=== PATIENT | male | born 1955 | race Caucasian/White ===

== ENCOUNTER 2020-03-11 15:52 | Emergency (ER) | payer MEDICARE, BC ==
[~2020-03-11] VITALS: Ht 182.9 cm; Wt 136.0 kg
--- NOTE | 2020-03-11 16:12 | PHYS DOC ---
Past History Past Medical History: COPD, Hypertension Smoking: Quit Greater Than 1 Year General Adult EDM: Chief Complaint: palpitations HPI: HPI: 64-year-old male presents with palpitations. Patient had a similar episode of heart rate racing last night he said his pulse ox showed a rate up to 260. Patient also noted his sats were in the 80s at that time. Patient denies any chest pain, fever, cough but had some mild shortness of breath during the episode. Patient's never had episode like this today or in the past. Patient did take a nitroglycerin with some improved symptoms. Review of Systems: Review of Systems: Constitutional: Denies fever or chills Eyes: Denies change in visual acuity HENT: Denies sore throat Respiratory: Denies cough, mild shortness of breath Cardiovascular: Denies chest pain or edema , + palpitations GI: Denies abdominal pain, nausea, vomiting, or diarrhea : Denies dysuria Musculoskeletal: Denies back pain or joint pain Integument: Denies rash Neurologic: Denies headache or focal weakness Psychiatric: Denies depression or anxiety Heart Score: HEART Score for Chest Pain: HEART Score for Chest Pain Response (Comments) Value History Slighlty/Non-Suspicious 0 ECG Normal 0 Age > 65 2 Risk Factors 1 or 2 Risk Factors 1 Total 3 Risk Factors: Risk Factors: DM, Current or recent (<one month) smoker, HTN, HLP, family history of CAD, obesity. Risk Scores: Score 0 - 3: 2.5% MACE over next 6 weeks - Discharge Home Score 4 - 6: 20.3% MACE over next 6 weeks - Admit for Clinical Observation Score 7 - 10: 72.7% MACE over next 6 weeks - Early Invasive Strategies Physical Exam: PE: Constitutional: Well developed, well nourished, no acute distress, non-toxic appearance. [] HENT: Normocephalic, atraumatic, bilateral external ears normal, oropharynx moist, no oral exudates, nose normal. [] Eyes: PERRLA, EOMI, conjunctiva normal, no discharge. [] Neck: Normal range of motion, no tenderness, supple, no stridor. [] Cardiovascular:Heart rate regular rhythm, no murmur [] Lungs & Thorax: Bilateral breath sounds clear to auscultation [] Abdomen: Bowel sounds normal, soft, no tenderness, no masses, no pulsatile masses. [] Skin: Warm, dry, no erythema, no rash. [] Back: No tenderness, no CVA tenderness. [] Extremities: No tenderness, no cyanosis, no clubbing, ROM intact, no edema. [] Neurologic: Alert and oriented X 3, normal motor function, normal sensory function, no focal deficits noted. [] Psychologic: Affect normal, judgement normal, mood normal. [] Current Patient Data: Labs: Laboratory Tests Test 03/11/20 16:34 White Blood Count 7.0 x10^3/uL Red Blood Count 4.51 x10^6/uL Hemoglobin 14.4 g/dL Hematocrit 42.4 % Mean Corpuscular Volume 94 fL Mean Corpuscular Hemoglobin 32 pg Mean Corpuscular Hemoglobin Concent 34 g/dL Red Cell Distribution Width 14.2 % Platelet Count 243 x10^3/uL Neutrophils (%) (Auto) 72 % Lymphocytes (%) (Auto) 18 % Monocytes (%) (Auto) 8 % Eosinophils (%) (Auto) 1 % Basophils (%) (Auto) 1 % Neutrophils # (Auto) 5.0 x10^3uL Lymphocytes # (Auto) 1.3 x10^3/uL Monocytes # (Auto) 0.6 x10^3/uL Eosinophils # (Auto) 0.1 x10^3/uL Basophils # (Auto) 0.1 x10^3/uL Prothrombin Time 10.4 SEC Prothromb Time International Ratio 1.0 Activated Partial Thromboplast Time 25 SEC Sodium Level 135 mmol/L Potassium Level 4.6 mmol/L Chloride Level 98 mmol/L Carbon Dioxide Level 24 mmol/L Anion Gap 13 Blood Urea Nitrogen 21 mg/dL Creatinine 1.4 mg/dL Estimated GFR (Cockcroft-Gault) 50.7 BUN/Creatinine Ratio 15 Glucose Level 155 mg/dL Calcium Level 8.9 mg/dL Magnesium Level 1.9 mg/dL Total Bilirubin 0.4 mg/dL Aspartate Amino Transf (AST/SGOT) 38 U/L Alanine Aminotransferase (ALT/SGPT) 72 U/L Alkaline Phosphatase 74 U/L Troponin I Quantitative < 0.017 ng/mL ZG-Vyp-T-Type Natriuretic Peptide 19 pg/mL Total Protein 7.6 g/dL Albumin 4.4 g/dL Albumin/Globulin Ratio 1.4 EKG: EKG: Normal sinus rhythm with a rate of 75 normal axis normal intervals normal ST segments Radiology/Procedures: Radiology/Procedures: [address] [place] [id number] IMAGING REPORT Signed PATIENT: JIHAN AUGUSTE ACCOUNT: [id number] : 1955 LOCATION: ER AGE: 64 SEX: M EXAM STATUS: PRE ER ORD. PHYSICIAN: ESE BRISCOE MD REASON: cp PROCEDURE: PORTABLE CHEST 1V INDICATION: Reason: cp / Spl. Instructions: / History: COMPARISON: None. FINDINGS: Single view of chest obtained. Cardiomediastinal silhouette is near the upper limits of normal in size. A definite well-defined infiltrate is not seen. No gross osseous destructive lesion. IMPRESSION: * No definite focal airspace consolidation. Electronically signed by: Suzanne Vogel MD (03/11/2020 4:33 PM) [id number] DICTATED AND SIGNED BY: SUZANNE VOGEL MD DATE: 03/11/20 163 CC: ESE BRISCOE MD ~ Course & Med Decision Making: Course & Med Decision Making Pertinent Labs and Imaging studies reviewed. (See chart for details) [] Patient with episode of palpitation lasting couple of minutes overnight. Patient is in normal sinus rhythm here. Patient probably had a transient run of atrial fibrillation. Patient had no chest pain. Work-up was negative. Patient will be a referral to a certified substance abuse counselor for further evaluation and treatment. Return precautions given. Dragon Disclaimer: Obi Disclaimer: This electronic medical record was generated, in whole or in part, using a voice recognition dictation system. Departure Departure: Impression: Primary Impression: Palpitations Disposition: 01 HOME/RESIDENCE PRIOR TO ADM Condition: STABLE Referrals: ALEX DOWNEY MD 2-3 days Patient Instructions: Palpitations Additional Instructions: EMERGENCY DEPARTMENT GENERAL DISCHARGE INSTRUCTIONS THANK YOU for coming to [facility] Emergency Department (ED) today and trusting us with your care. We trust that you had a positive experience in our Emergency Department. YOUR FOLLOW UP INSTRUCTIONS ARE FOLLOWS: Do you have a private doctor? If you do not have a private doctor, please ask for a resource list of physicians or clinics that may be able to assist you with follow up care. The Emergency Physician has interpreted your x-rays. The X-ray specialist will also review them. If there is a change in the findings you will be notified in 48 hours when at all possible. A lab test or lab culture may have been done, your results will be reviewed and you will be notified if you need a change in treatment. ADDITIONAL INSTRUCTIONS AND INFORMATION Your care today has been supervised by a physician who is specially trained in emergency care. Many problems require more than one evaluation for a complete diagnosis and treatment. We recommend that you schedule your follow up appointment as recommended to ensure complete treatment of your illness or injury. If you are unable to obtain follow up care and continue to have a problem, or if your condition worsens we recommend that you return to the ED. We are not able to safely determine your condition over the phone nor are we able to give sound medical advice over the phone. For these safety reasons, if you call for medical advice we will ask you to come to the ED for further evaluation If you have any questions regarding these discharge instructions please call the ED at . SAFETY INFORMATION In the interest of safety, wellness, and injury prevention; we encourage you to wear your seatbelt, if you smoke; quit smoking, and we encourage your family to use protective helmet for bicycling and other sporting events that present an increased risk for head injury. IF YOUR SYMPTOMS WORSEN OR NEW SYMPTOMS DEVELOP, OR YOU HAVE CONCERNS ABOUT YOUR CONDITION; OR IF YOUR CONDITION WORSENS WHILE YOU ARE WAITING FOR YOUR FOLLOW UP APPOINTM ENT; EITHER CONTACT YOUR PRIMARY CARE DOCTOR, THE PHYSICIAN WHOSE NAME AND NUMBER YOU WERE GIVEN, OR RETURN TO THE ED IMMEDIATELY. Justification of Admission: Justification of Admission: Justification of Admission Dx: N/A ESE BRISCOE MD Mar 11, 2020 16:12
--- NOTE | 2020-03-11 16:36 | RAD ---
INDICATION: Reason: cp / Spl. Instructions: / History: COMPARISON: None. FINDINGS: Single view of chest obtained. Cardiomediastinal silhouette is near the upper limits of normal in size. A definite well-defined infiltrate is not seen. No gross osseous destructive lesion. IMPRESSION: * No definite focal airspace consolidation. Electronically signed by: Anderson Moore MD (03/11/2020 4:33 PM) [id number]
[2020-03-11 16:49] VITALS: BP 135/67
[2020-03-11 17:08] LABS: BASO # 0.1 x10^3/uL (0.0-0.2); BASO % 1 % (0-3); EOS # 0.1 x10^3/uL (0.0-0.7); EOS % 1 % (0-3); HEMATOCRIT 42.4 % (39.0-53.0); HEMOGLOBIN 14.4 g/dL (13.0-17.5); LYMPH # 1.3 x10^3/uL (1.0-4.8); LYMPH % 18 % (24-48); MEAN CORPUSCULAR HEMOGLOBIN 32 pg (25-35); MEAN CORPUSCULAR HGB CONC 34 g/dL (31-37); MEAN CORPUSCULAR VOLUME 94 fL (79-100); MONO # 0.6 x10^3/uL (0.0-1.1); MONO % 8 % (0-9); NEUT % 72 % (31-73); PLATELET COUNT 243 x10^3/uL (140-400); RED BLOOD COUNT 4.51 x10^6/uL (4.30-5.70); RED CELL DISTRIBUTION WIDTH 14.2 % (11.5-14.5)
[2020-03-11 17:11] LABS: CALCIUM 8.9 mg/dL (8.5-10.1); CREATININE 1.4 mg/dL (0.7-1.3); GFR 50.7; POTASSIUM 4.6 mmol/L (3.5-5.1)
[2020-03-11 17:23] LABS: ALBUMIN 4.4 g/dL (3.4-5.0); ALBUMIN/GLOBULIN RATIO 1.4 (1.0-1.7); MAGNESIUM 1.9 mg/dL (1.8-2.4); TOTAL BILIRUBIN 0.4 mg/dL (0.2-1.0); TOTAL PROTEIN 7.6 g/dL (6.4-8.2)
--- NOTE | 2020-03-11 18:20 | EKG ---
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
== END 2020-03-11 18:05 | disposition home or self-care (01) ==
LOC: ER 15:52
DX: R00.2 Palpitations (principal); R06.02 Shortness of breath; J44.9 Chronic obstructive pulmonary disease, unspecified; I10 Essential (primary) hypertension; Z87.891 Personal history of nicotine dependence
CPT/HCPCS: 36415; 71045; 80053; 83735; 83880; 84443; 84484; 85025; 85610; 85730; 93005; 99285

== ENCOUNTER → 2020-07-27 | Outpatient (CLI) | payer MEDICARE, BC ==
[2020-07-27 11:43] LABS: BASO % 1 % (0-3); EOS # 0.1 x10^3/uL (0.0-0.7); EOS % 2 % (0-3); HEMATOCRIT 43.8 % (39.0-53.0); HEMOGLOBIN 14.3 g/dL (13.0-17.5); LYMPH # 1.4 x10^3/uL (1.0-4.8); LYMPH % 24 % (24-48); MEAN CORPUSCULAR HEMOGLOBIN 31 pg (25-35); MEAN CORPUSCULAR HGB CONC 33 g/dL (31-37); MEAN CORPUSCULAR VOLUME 94 fL (79-100); MONO # 0.6 x10^3/uL (0.0-1.1); MONO % 10 % (0-9); NEUT # 3.7 x10^3uL (1.8-7.7); NEUT % 64 % (31-73); PLATELET COUNT 214 x10^3/uL (140-400); RED BLOOD COUNT 4.67 x10^6/uL (4.30-5.70); RED CELL DISTRIBUTION WIDTH 14.2 % (11.5-14.5); WHITE BLOOD COUNT 5.8 x10^3/uL (4.0-11.0)
[2020-07-27 13:59] LABS: TOTAL PROTEIN 6.9 g/dL (6.4-8.2)
[2020-07-27 14:00] LABS: ALBUMIN 4.1 g/dL (3.4-5.0); ALBUMIN/GLOBULIN RATIO 1.5 (1.0-1.7); CREATININE 1.2 mg/dL (0.7-1.3); GFR 60.6; POTASSIUM 4.2 mmol/L (3.5-5.1); TOTAL BILIRUBIN 0.4 mg/dL (0.2-1.0)
== END ==
LOC: LAB 10:36
PROVIDERS: ATTEND Internal Medicine Hematology & Oncology
DX: C83.30 Diffuse large B-cell lymphoma, unspecified site (principal)
CPT/HCPCS: 36415; 80053; 83615; 85025

== ENCOUNTER → 2020-11-22 | Outpatient (CLI) | payer MEDICARE, BC ==
[2020-11-23 11:16] LABS: MICRO CREAT RATIO <8 mg/g creat (0-29); MICROALB RD UR <3.0 ug/mL (Not Estab.)
[2020-11-23 14:42] LABS: FREE T4 0.99 ng/dL (0.76-1.46); THYROID STIM HORMONE (TSH) 2.699 uIU/mL (0.358-3.740)
== END ==
LOC: LAB 13:30
PROVIDERS: ATTEND Physician Assistant Surgical
DX: E11.8 Type 2 diabetes mellitus with unspecified complications (principal); R23.2 Flushing; Z79.4 Long term (current) use of insulin
CPT/HCPCS: 82043; 82570; 83036; 84439; 84443

== ENCOUNTER → 2021-06-07 | Outpatient (CLI) | payer MEDICARE, BC ==
[2021-06-07 12:03] LABS: ALBUMIN 4.1 g/dL (3.4-5.0); ALBUMIN/GLOBULIN RATIO 1.3 (1.0-1.7); CALCIUM 8.9 mg/dL (8.5-10.1); CREATININE 1.2 mg/dL (0.7-1.3); GFR 60.4; POTASSIUM 4.5 mmol/L (3.5-5.1); TOTAL BILIRUBIN 0.4 mg/dL (0.2-1.0); TOTAL PROTEIN 7.2 g/dL (6.4-8.2)
[2021-06-07 14:10] LABS: BACTERIA,URINE 0 /HPF (0-FEW); BILIRUBIN,URINE NEG (NEG); CLARITY,URINE CLEAR; COLOR,URINE YELLOW; GLUCOSE,URINE NEG (NEG); NITRITE,URINE NEG (NEG); RBC,URINE OCC /HPF (0-2); SQUAMOUS EPITHELIAL CELL,UR FEW /LPF; UROBILINOGEN,URINE 0.2 mg/dL (0.2 mg/dL); WBC,URINE OCC /HPF (0-4)
[2021-06-07 15:04] LABS: THYROID STIM HORMONE (TSH) 1.852 uIU/mL (0.358-3.740)
[2021-06-07 21:13] LABS: MICROALB RD UR 9.2 ug/mL (Not Estab.)
[2021-06-08 01:13] LABS: HEMOGLOBIN A1C 6.9 % (4.8-5.6)
== END ==
LOC: LAB 10:12
PROVIDERS: ATTEND Physician Assistant Surgical
DX: E11.65 Type 2 diabetes mellitus with hyperglycemia (principal); E11.8 Type 2 diabetes mellitus with unspecified complications; I10 Essential (primary) hypertension; E78.5 Hyperlipidemia, unspecified; M54.9 Dorsalgia, unspecified; Z79.4 Long term (current) use of insulin
CPT/HCPCS: 80053; 80061; 81001; 82043; 82570; 83036; 84443; 85049

== ENCOUNTER → 2021-08-15 | Outpatient (CLI) | payer MEDICARE, BC ==
[2021-08-15 12:29] LABS: BASO % 0 % (0-3); EOS # 0.1 x10^3/uL (0.0-0.7); EOS % 2 % (0-3); HEMATOCRIT 42.1 % (39.0-53.0); HEMOGLOBIN 14.1 g/dL (13.0-17.5); LYMPH # 1.1 x10^3/uL (1.0-4.8); LYMPH % 15 % (24-48); MEAN CORPUSCULAR HEMOGLOBIN 31 pg (25-35); MEAN CORPUSCULAR HGB CONC 33 g/dL (31-37); MEAN CORPUSCULAR VOLUME 94 fL (79-100); MONO # 0.5 x10^3/uL (0.0-1.1); MONO % 7 % (0-9); NEUT # 5.6 x10^3uL (1.8-7.7); NEUT % 77 % (31-73); PLATELET COUNT 236 x10^3/uL (140-400); RED BLOOD COUNT 4.49 x10^6/uL (4.30-5.70); RED CELL DISTRIBUTION WIDTH 14.3 % (11.5-14.5); WHITE BLOOD COUNT 7.4 x10^3/uL (4.0-11.0)
[2021-08-15 12:52] LABS: ALBUMIN 3.8 g/dL (3.4-5.0); ALBUMIN/GLOBULIN RATIO 1.1 (1.0-1.7); CALCIUM 8.5 mg/dL (8.5-10.1); CREATININE 1.4 mg/dL (0.7-1.3); GFR 50.5; POTASSIUM 4.6 mmol/L (3.5-5.1); TOTAL BILIRUBIN 0.5 mg/dL (0.2-1.0); TOTAL PROTEIN 7.3 g/dL (6.4-8.2)
== END ==
LOC: LAB 11:42
PROVIDERS: ATTEND Internal Medicine Hematology & Oncology
DX: C82.01 Follicular lymphoma grade I, lymph nodes of head, face, and neck (principal); C83.30 Diffuse large B-cell lymphoma, unspecified site
CPT/HCPCS: 36415; 80053; 83615; 85025